=== PATIENT | female | born 1940 | race Caucasian/White ===

== ENCOUNTER 2018-02-12 15:14 | Inpatient (IN) | payer MEDICARE ==
[~2018-02-12] VITALS: Ht 152.4 cm; Wt 85.7 kg
--- NOTE | ~2018-02-12 | PR ---
[place], [place] PROGRESS NOTE NAME: CODI AMIN UNIT #: [id number] ROOM: 315 DOCTOR: HARPREET GARCIA MD BIRTHDATE: [birth year] DOS: 02/15/2018 CHIEF COMPLAINT: "Oh good morning, I am still in pain." SUMMARY OF THE VISIT: The patient was interviewed as she was sitting at the edge of the dining table in her wheelchair. As I approached, she smiled readily. She seemed much more alert and brighter than she did yesterday and was able to engage in conversation more readily. She did report that she slept well and is feeling a little better mood chand, but still states that the pain in her left lower back, hip and buttocks is still pretty severe. She has been compliant with all aspects of care and has not been agitated or aggressive. Her yelling out that was problematic a day ago was much better last evening. She is tolerating the current medication regimen well. I see no sedation, somnolence, extrapyramidal symptoms, tardive dyskinesia or any other adverse events secondary to the medications themselves. MENTAL STATUS: She is alert and oriented with significant time gaps. Mood does seem to be trending towards euthymia. Affect is more appropriate. Speech rate and pattern is still slow and she is whisper like in her responses. There is no hypomania or helga. There are no overt auditory or visual hallucinations. No delusions, no paranoia. Short term memory still is problematic. PLAN: I will go ahead and increase Namenda from 5 mg a day to 5 mg b.i.d. to augment the effectiveness of the Exelon patch. I will continue my taper of the Valium lowering it from 2 mg 4 times a day to 2 mg 3 times a day as I simultaneously increase the Neurontin from 100 mg 3 times a day to 200 mg 3 times a day to impact positively on her anxiety and even more importantly reduce her pain. We will engage her in individual and johnson milieu activity, returning to the least restrictive environment when psychiatrically stable. HARPREET GARCIA MD CM:PNTRANS [id number] HARPREET GARCIA MD 02/15/18 1438 interface
--- NOTE | ~2018-02-12 | DS ---
[place], [place] DISCHARGE SUMMARY NAME: CODI AMIN UNIT #: [id number] ROOM: 315 DOCTOR: HARPREET GARCIA MD BIRTHDATE: [birth year] DOS: 02/21/2018 CHIEF COMPLAINT: "I have just been in so much pain." HISTORY OF PRESENT ILLNESS: This is a 77-year-old white female who is known to me from her previous stay at [facility] in [place], [place]. The patient is admitted now due to worsening depression as well as a cognitive decline. The patient has not been attending to her ADLs well and has been extremely resistive to care. Even though she has 24-hour caregivers present, it has become increasingly more difficult for them to manage and engage her in care. She also has endorsed issues with poor sleep with difficulty falling asleep, sleep continuity disturbance and salesperson driver awakening as well as poor appetite, anergia, anhedonia, hopeless, helpless feelings, crying spells, and inability to cope. The patient notes that her physical pain has intensified to the point where she is fixated on receiving her [place] around the clock. She has decompensated to the point where inpatient stabilization is warranted. PAST MEDICAL HISTORY: Remarkable for COPD, dementia, diabetes, fibromyalgia and major depression, generalized anxiety disorder, GERD, hypertension, macular degeneration, obesity, osteoarthritis, sciatica and spinal stenosis. ALLERGIES: SHE LISTS ALLERGIES TO PENICILLIN, CODEINE, ERYTHROMYCIN, AND FLUCONAZOLE. SUMMARY OF HOSPITAL COURSE: The patient was admitted to the hospital where her Valium was gradually tapered during her stay, she was prescribed 5 mg 3 times a day. It was subsequently lowered to 5 mg twice daily, 2 mg 4 times a day, then 3 twice a day, 1 mg twice a day and subsequently discontinued. She tolerated the rapid titration well. Simultaneously, she was maintained on her Cymbalta, which was augmented with Neurontin 100 mg 3 times a day. The dose of the Neurontin was increased to its maximum dose of 300 mg 3 times a day in the hopes that the Neurontin would augment the effectiveness of the antidepressant as well as also limit her pain. She was given Zostrix high potency cream for local application for the major pain areas. Additionally, she was started on Exelon patch and Namenda in order to improve or maintain ADLs, behavior and cognition. Both of these medications were increased to their maximum doses, Exelon patch being brought up to 13.3 mg a day and Namenda to 10 mg b.i.d. without any adverse event and with positive benefit. The patient's cognitive status as well as emotional status improved gradually. She became much more engaging in individual and johnson activities was not resistive to care and voiced positive plans for the future and was looking forward to returning back to [facility]. MENTAL STATUS AT DISCHARGE: The patient is alert and oriented with time gaps. Mood does seem to be strongly trending towards euthymia. Affect is much more appropriate. There is no helga or hypomania. Likewise, there are no overt auditory or visual hallucinations. No delusions, no paranoia. Short term memory has gaps, otherwise she is intact. FINAL DIAGNOSES AT DISCHARGE: Major depression, recurrent, severe, and Alzheimer's dementia. [place], [place] DISCHARGE SUMMARY NAME: CODI AMIN UNIT #: [id number] ROOM: [facility] DOCTOR: HARPREET GARCIA MD BIRTHDATE: [birth year] DISPOSITION: The patient is to return to the assisted living component of [facility]. She is medically and she is psychiatrically stable. Her biopsychosocial needs are adequately being met by the facility at large. Her prescriptions have been printed and a copy of the prescriptions will be sent back to [facility]. I will follow her upon her readmission to [facility]. HARPREET GARCIA MD CM:DISCHARG [id number] HARPREET GARCIA MD 02/21/18 7968 interface
--- NOTE | ~2018-02-12 | CON ---
[place], [place] REPORT OF CONSULTATION NAME: CODI AMIN UNIT #: [id number] ROOM: 315 DOCTOR: PHD SARBJIT CATARINA BIRTHDATE: [birth year] DOS: HISTORY OF PRESENT ILLNESS: The patient is a 77-year-old female with a history of major depressive disorder, dementia, fibromyalgia, hypertension, and diabetes who presented with cognitive decline and worsening depression. She lives in [facility]. She is currently on the [facility] at [facility]. The patient was referred by Dr. Stacy for a cognitive assessment. SOCIAL HISTORY: The patient reports being twice and having 2 daughters. She denied a history of alcohol, tobacco, and illegal drug use. PAST MEDICAL HISTORY: Significant for COPD, dementia, diabetes, fibromyalgia, major depressive disorder, GERD, hypertension, macular degeneration, obesity, osteoarthritis, generalized anxiety disorder, sciatica, and spinal stenosis. MEDICATIONS: Zostrix, Exelon, Namenda, Neurontin, Bumex, Singulair, vitamin D, Pepcid, Cymbalta, ____ Micronase, Humalog, Ventolin, DuoNebs, Geodon, Rozerem, Valium, Durant, Nystatin, Ativan. The patient was awake and drowsy. She was oriented to person and place. Eye contact was poor. Affect was flat and mood was depressed with no suicidal or homicidal ideations. Thought process was tangential. There was no evidence of hallucinations or delusions. Insight and judgment appear compromised. Speech was soft. Performance on nonstandardized mental status test revealed difficulty with attention and concentration. She could not spell world backwards nor perform serial 7 subtractions. She can name the president and repeat a minimum of 5 digits forward and three digits backwards. On more formal screener, she did not participate in subtest of the [place] Cognitive Assessment that required motor skills and stated she could not see well enough to participate in naming tasks. With respect to memory, she recalled 4/5 words for both immediate memory trials. After a brief delay, spontaneous recall was 0 out of 5 words. She could recall 2 out of 5 words with the aid of categorical cues and an additional 2 words with multiple choices. The patient could correctly repeats 1 out of 2 sentences and demonstrated an ease of confusion. Verbal abstraction was impaired and verbal fluency was impaired at 0 words in 1 minute. SUMMARY: Overall there is a strong indication of relative inefficiency in neuropsychological functioning particularly in the area of memory, concentration, and speed of mental operations. Contributing factors to her presentation likely include her history of cerebrovascular disease, depression, and medication effects. DIAGNOSES: Dementia, not otherwise specified; major depressive disorder, recurrent, severe; anxiety disorder, not otherwise specified. RECOMMENDATIONS: Continue treatment of cardiovascular disease. Continue psychiatric treatment. Full neuropsychological testing once the patient is discharged may be of benefit if there are further questions regarding her [place], [place] REPORT OF CONSULTATION NAME: CODI AMIN UNIT #: [id number] ROOM: 315 DOCTOR: SARBJIT, PHD CATARINA BIRTHDATE: [birth year] cognitive status. Thank you for this consult. Priscilla Santa, PhD CM:CONSTR:REPORT OF CONSULTATION 1739 02/15/18 0500 interface
--- NOTE | ~2018-02-12 | PR ---
[place], [place] PROGRESS NOTE NAME: CODI AMIN UNIT #: [id number] ROOM: 315 DOCTOR: ИВАН BRIDGES MD BIRTHDATE: [birth year] DOS: 02/17/2018 SUBJECTIVE: The patient seen and spoke with staff. Per staff, patient refused the night meds yesterday, but took medication this morning. Per nursing staff, she picks and chooses. No other behavioral problems or issues. The patient was in the day area. She reports doing good. She said that she wanted to go home and keep on insisting on that. She denied any depressed mood or hopelessness. Denied any other neurovegetative signs and symptoms of depression. She reports good sleep and appetite. MENTAL STATUS EXAMINATION: Pleasant, cooperative. Described her mood as "good." Affect somewhat flat, constricted. Thought process goal directed. No flight of ideas, loosening of association. She denied auditory or visual hallucination. No delusion or paranoia noted. She denies suicidal ideation, intent or plan. She also denied homicidal ideation, intent or plan. PLAN: 1. Continue current medication and care. 2. Continue redirection and supportive care. 3. Encourage activity and groups. 4. Final medication management and discharge plan by the regular team. ИВАН BRIDGES MD CM:PNTRANS [id number] ИВАН BRIDGES MD 02/18/18 0548 interface
--- NOTE | ~2018-02-12 | PN ---
[place], [place] PROGRESS NOTE NAME: CODI AMIN UNIT #: [id number] ROOM: 315 DOCTOR: HARPREET GARCIA MD BIRTHDATE: [birth year] DATE: 02/14/18 ADDENDUM 04/02/18803 DR. GARCIA: Above note reviewed. Agree with observations, recommendations, and overall treatment plan. HARPREET GARCIA MD CM:PNTRANS 3 6 HARPREET GARCIA MD 04/02/18806 MENA PRETTY MIS.LLR
--- NOTE | ~2018-02-12 | WRIGHTHP ---
[place], [place] PATIENT HISTORY AND PHYSICAL EXAM NAME: CODI AMIN UNIT #: [id number] ROOM: 315 DOCTOR: HARPREET GARCIA MD BIRTHDATE: [birth year] DOS: 02/13/2018 INITIAL PSYCHIATRIC EVALUATION CHIEF COMPLAINT: "I have just in so much pain." HISTORY OF PRESENT ILLNESS: This is a 77-year-old white female who is a resident of [facility]. The patient is admitted now due to a significant worsening of her depression as well as a cognitive decline. The patient has not been attending to her ADLs and has been resistive to care. Even though she has 24-hour caregivers, it has been more and more difficult for them to be able to engage her in care. She also has had issues with poor sleep and appetite, anergia, anhedonia, hopeless and helpless feelings, crying spells, and inability to cope. The patient has been complaining that her pain has intensified and she is very much fixated on receiving her [place] around the clock. Given the significant decompensation, it was felt that an inpatient psychiatric evaluation and treatment was warranted. PAST MEDICAL HISTORY: Remarkable for COPD, dementia, diabetes, fibromyalgia, major depression, generalized anxiety disorder, GERD, hypertension, macular degeneration, obesity, osteoarthritis, sciatica and spinal stenosis. PAST SOCIAL HISTORY: The patient does not currently drink alcohol nor does she use illicit drugs. She has never been a smoker. ALLERGIES: She lists allergies to PENICILLIN, CODEINE, ERYTHROMYCIN, AND FLUCONAZOLE. STRENGTHS: Good verbal skill and very supportive family. WEAKNESSES: Worsening cognitive decline and poor coping skills. MENTAL STATUS: She is alert and oriented to self. It is unclear if she realizes she is in the hospital nor she oriented to time. Mood does seem to be overwhelmingly depressed. Affect is flat and blunted with a constricted range. There is no hypomania or helga. There are no auditory or visual hallucinations. No delusions were voiced. No paranoia was present. Short term memory is very poor. DIAGNOSIS: Major depression, recurrent, severe; anxiety disorder, not otherwise specified, and Alzheimer dementia. PLAN: I have already started to taper on her Valium. She was initially prescribed 5 mg 3 times a day. I have lowered it to 5 mg twice a day and will now change it to 2 mg 4 times a day as I began to titrate off of the benzodiazepine that could be negatively impacting her cognition. I have maintained her on Cymbalta 90 mg a day. I will augment this with Neurontin 100 mg 3 times a day, not only to help stabilize mood, but also to offer some pain relief. I will utilize Zostrix high potency cream t.i.d. for the specific areas of the most intense pain. I have also initiated Exelon patch at 4.6 mg a day [place], [place] PATIENT HISTORY AND PHYSICAL EXAM NAME: CODI AMIN UNIT #: [id number] ROOM: [facility] DOCTOR: HARPREET GARCIA MD BIRTHDATE: [birth year] and will augment this with Namenda 5 mg at bedtime in an effort to improve or maintain ADLs, behavior and cognition. We will engage her in individual and johnson milieu activity with the plan to return to the least restrictive environment when psychiatrically stable. HARPREET GARCIA MD CM:HISPHYS:PATIENT HISTORY AND PHYSICAL EXAMINATION [id number] HARPREET GARCIA MD 02/13/18 1226 interface
--- NOTE | ~2018-02-12 | PR ---
[place], [place] PROGRESS NOTE NAME: CODI AMIN UNIT #: [id number] ROOM: 315 DOCTOR: HARPREET GARCIA MD BIRTHDATE: [birth year] DOS: 02/18/2018 CHIEF COMPLAINT: "Oh my pain is so much better." SUMMARY OF THE VISIT: The patient was interviewed in the dining area where she was sitting talking to the sheet metal worker helper as well as a member of the OT Department. The patient was smiling upon approach and engaged readily in conversation. She voiced that she is feeling better both mentally and physically that her pain is less. She even mentioned to me that she was able to walk a little bit and feels that the next step is to dance down the link. She joked with me. She convincingly denies medication side effects. MENTAL STATUS: She is alert and oriented to person, place, very approximate to time. Mood does seem to be steadily trending toward euthymia. Affect is much more appropriate. There is no helga or hypomania. There are no gross psychotic symptoms noted. Short term memory still is problematic. PLAN: I will continue her Valium taper bringing it from 2 mg 3 times a day down to 2 mg twice a day while simultaneously increasing her Neurontin to 300 mg 3 times a day. I will check a Neurontin level soon as we are now getting into a more therapeutic level. I will maximize out the Exelon patch, bringing the dose to 13.3 mg a day and then plan to simultaneously start increasing the Namenda, so that we can maximize potential benefits. Continue to engage in individual and johnson milieu activities, returning to the least restrictive environment when psychiatrically stable. HARPREET GARCIA MD CM:PNTRANS [phone] HARPREET GARCIA MD 02/18/181930 interface
--- NOTE | ~2018-02-12 | PR ---
[place], [place] PROGRESS NOTE NAME: CODI AMIN UNIT #: [id number] ROOM: 315 DOCTOR: ИВАН BRIDGES MD BIRTHDATE: [birth year] DOS: 02/15/2018 PSYCHIATRIC PROGRESS NOTE SUBJECTIVE: The patient seen and spoke with the staff. Per staff, the patient is very uncooperative, attention seeking and yells and screams at time. The patient was pleasant, cooperative. She was in the day area. When I asked her how she is doing, she said that she is doing good and "ready to go home." She was not in any distress. She denied depressed mood or hopelessness. She is taking her medication regularly and did not have any side effect from the medication. MENTAL STATUS EXAMINATION: Pleasant, cooperative. Described her mood as "good." Affect, mood congruent. Thought process is goal directed with some flight of ideas or loosening of association. She denied auditory or visual hallucination. No delusion or paranoia noted. She denied suicidal ideation, intent or plan. She also denied homicidal ideation, intent or plan. PLAN: 1. Continue current medication and care. 2. Encourage activities in groups. 3. Need to get collateral information. ИВАН BRIDGES MD CM:PNTRANS [id number] ИВАН BRIDGES MD 02/17/18 1636 interface
[2018-02-12] MEDS ORDERED: ACCOLATE20 MG PO (17:08)
[2018-02-12] MEDS ORDERED: TYLENOL EXTRA500 M2 PO (17:09)
[2018-02-12] MEDS ORDERED: ADV 100/50 INH (17:10)
[2018-02-12] MEDS ORDERED: PROAIR HFA8.5 GM INH (17:11)
[2018-02-12] MEDS ORDERED: ANORO ELLIPTA1 EACH INH (17:12)
[2018-02-12] MEDS ORDERED: BUMETANIDE2 MG PO (17:13)
[2018-02-12] MEDS ORDERED: Diabeta,Micron2.5 MG PO (17:14)
[2018-02-12] MEDS ORDERED: DICLO GEL1 EACH T (17:15)
[2018-02-12] MEDS ORDERED: GOOD NEIGHBOR P20 MG PO (17:16)
[2018-02-12] MEDS ORDERED: KLOR-CON M2020 ME1 PO (17:16)
[2018-02-12] MEDS ORDERED: LIDODERM1 EACH T (17:17)
[2018-02-12] MEDS ORDERED: LOTRISONE30 ML PO (17:18)
[2018-02-12] MEDS ORDERED: VENTOLIN 02.5 MG/3 M INH (17:19)
[2018-02-12] MEDS ORDERED: VITAMIN D-32000 UNIT PO (17:20)
[2018-02-12] MEDS ORDERED: TRELEGY ELLIPT1 EACH INH (17:21)
[2018-02-12] MEDS ORDERED: VALIUM5 MG PO ×2 (17:22→17:23)
[2018-02-12] MEDS ORDERED: NORCO 5-325 TA1 EACH PO ×2 (17:23→17:24)
[2018-02-12] MEDS ORDERED: CYMBALTA60 MG PO (17:25)
[2018-02-12 22:23] VITALS: BP 160/86
[2018-02-12 23:33] VITALS: BP 160/86
[2018-02-13 04:07] LABS: BILIRUBIN NEGATIVE (NEGATIVE); BLOOD NEGATIVE (NEGATIVE); CLARITY CLEAR (CLEAR); COLOR YELLOW (YELLOW); GLUCOSE NEGATIVE (NEGATIVE); KETONE NEGATIVE (NEGATIVE); LEUKO ESTERASE TRACE (NEGATIVE); NITRITE NEGATIVE (NEGATIVE); SPECIFIC GRAVITY <= 1.005 (1.005-1.030); UROBILINOGEN 0.2 E.U./dl (0.2-1.0)
[2018-02-13 04:16] LABS: BACTERIA TRACE
[2018-02-13 06:53] LABS: BASO # 0.1 10*3/uL (0.0-0.1); BASO % 0.5 % (0.0-1.0); EOS # 0.2 10*3/uL (0.0-0.4); EOS % 2.5 % (1.0-4.0); HEMATOCRIT 34.8 % (37.0-47.0); HEMOGLOBIN 10.3 g/dl (12.0-16.0); LYMPH # 2.4 10*3/uL (1.3-4.4); LYMPH % 24.6 % (27.0-41.0); MEAN CELL VOLUME 92.8 fl (81.0-99.0); MEAN CORPUSCULAR HGB 27.5 pg (27.0-31.0); MEAN CORPUSCULAR HGB CONC 29.6 g/dl (33.0-37.0); MEAN PLATELET VOLUME 9.7 fl (9.6-12.3); MONO # 0.7 10*3/uL (0.1-1.0); MONO % 7.2 % (3.0-9.0); NEUT # 6.3 10*3/uL (2.3-7.9); NEUT % 64.9 % (47.0-73.0); PLATELET COUNT AUTOMATED 349 10*3/uL (130-400); RED BLOOD COUNT 3.75 10*6/uL (4.10-5.10); RED CELL DISTRI WIDTH 13.7 % (0-14.5); WHITE BLOOD COUNT 9.8 10*3/uL (4.8-10.8)
[2018-02-13 07:07] LABS: ALBUMIN 3.1 gm/dl (3.1-4.5); ALKALINE PHOSPHATASE 69 U/L (45-117); BUN 9 mg/dl (7-24); CHLORIDE 100 mmol/L (98-107); CHOLESTEROL 199 mg/dL (<200); CREATININE 0.57 mg/dL (0.55-1.02); HDL CHOLESTEROL 65 mg/dl (40-60); LDL CHOLESTEROL 113 mg/dL (9-159); POTASSIUM 3.5 mmol/L (3.5-5.1); SGOT/AST 10 IU/L (3-35); SGPT/ALT 9 U/L (12-78); SODIUM 140 mmol/L (136-145); TOTAL PROTEIN 6.8 gm/dL (6.4-8.2); TRIGLYCERIDES 106 mg/dl (<150); VLDL CHOLESTEROL 21 mg/dL (6-40)
[2018-02-13 07:57] VITALS: BP 152/79
[2018-02-13 08:39] LABS: VITAMIN D, 25-HYDROXY 34.1 ng/mL (30-100)
[2018-02-13 20:10] VITALS: BP 116/76
[2018-02-14 07:23] VITALS: BP 120/69
[2018-02-14 20:00] VITALS: BP 131/68
[2018-02-15 08:25] VITALS: BP 155/85
[2018-02-15 19:43] VITALS: BP 150/86
[2018-02-16 07:40] VITALS: BP 137/80
[2018-02-16 20:11] VITALS: BP 147/78
[2018-02-17 07:28] VITALS: BP 151/66
[2018-02-17 19:52] VITALS: BP 153/70
[2018-02-18 07:59] VITALS: BP 142/67
[2018-02-18 20:16] VITALS: BP 153/76
[2018-02-19 07:54] VITALS: BP 147/69
[2018-02-19 20:09] VITALS: BP 148/76
[2018-02-20 08:19] VITALS: BP 141/72
[2018-02-20 20:00] VITALS: BP 150/88
[2018-02-21 07:49] VITALS: BP 144/70
[2018-02-21] MEDS ORDERED: EXELON13.3 MG/21 T (11:00)
[2018-02-21] MEDS ORDERED: NEURONTIN300 MG PO (11:00)
[2018-02-21] MEDS ORDERED: MEMANTINE HCL10 MG PO (11:00)
[2018-02-21] MEDS ORDERED: Zostrix 0.1% T (11:00)
[2018-02-21] MEDS ORDERED: DULOXETINE HCL30 MG PO (11:00)
[2018-02-22 09:08] LABS: NEURONTIN (GABAPENTIN) 4.8 ug/mL (4.0-16.0)
== END 2018-02-21 16:20 | disposition home or self-care (01) | DRG 885 ==
LOC: 3N 15:14
PROVIDERS: Psychiatry & Neurology Psychiatry
DX: F33.2 Major depressive disorder, recurrent severe without psychotic features (principal); J96.10 Chronic respiratory failure, unspecified whether with hypoxia or hypercapnia; E11.65 Type 2 diabetes mellitus with hyperglycemia; G30.9 Alzheimer's disease, unspecified; F02.80 Dementia in other diseases classified elsewhere, unspecified severity, without behavioral disturbance, psychotic disturbance, mood disturbance, and anxiety; Z99.81 Dependence on supplemental oxygen; B37.2 Candidiasis of skin and nail; E66.9 Obesity, unspecified; M48.00 Spinal stenosis, site unspecified; H35.30 Unspecified macular degeneration; R00.0 Tachycardia, unspecified; M54.30 Sciatica, unspecified side; G89.29 Other chronic pain; J44.9 Chronic obstructive pulmonary disease, unspecified; M79.7 Fibromyalgia; F41.1 Generalized anxiety disorder; K21.9 Gastro-esophageal reflux disease without esophagitis; I10 Essential (primary) hypertension; M19.90 Unspecified osteoarthritis, unspecified site; Z88.1 Allergy status to other antibiotic agents; Z88.5 Allergy status to narcotic agent; Z88.0 Allergy status to penicillin; Z79.899 Other long term (current) drug therapy; Z79.84 Long term (current) use of oral hypoglycemic drugs; Z68.36 Body mass index [BMI] 36.0-36.9, adult